=== PATIENT | female | born 1985 | race Caucasian/White ===

== ENCOUNTER 2023-10-02 06:44 | Day surgery (SDC) | payer MEDICAID, OTHER ==
[~2023-10-02] VITALS: Ht 165.1 cm; Wt 120.2 kg
[2023-10-02] MEDS ORDERED: fentaNYL citrate 0.05 MG/ML VIAL ONE (07:48)
[2023-10-02] MEDS ORDERED: MIDAZOLAM 2 MG/2 ML VIAL ONE (07:48)
[2023-10-02] MEDS ORDERED: MIDAZOLAM 2 MG/2 ML VIAL IVP ONE (10:05)
== END 2023-10-02 09:50 | disposition home or self-care (01) ==
LOC: MDS 06:44 → MMU 06:44 → MDS 09:50
PROVIDERS: ATTEND Internal Medicine Gastroenterology
DX: Z09 Encounter for follow-up examination after completed treatment for conditions other than malignant neoplasm (principal); K29.70 Gastritis, unspecified, without bleeding; F41.9 Anxiety disorder, unspecified; E78.00 Pure hypercholesterolemia, unspecified; E66.9 Obesity, unspecified; Z98.84 Bariatric surgery status; Z68.41 Body mass index [BMI] 40.0-44.9, adult; J45.909 Unspecified asthma, uncomplicated; Z79.899 Other long term (current) drug therapy; Z98.890 Other specified postprocedural states
CPT/HCPCS: 36415; 43239; 82948; 86677; J2250; J3010